=== PATIENT | female | born 1945 | race Caucasian/White ===

== ENCOUNTER 2016-10-24 12:52 | Inpatient (IN) | payer MEDICARE, OTHER ==
[~2016-10-24] VITALS: Ht 149.9 cm; Wt 75.7 kg
[2016-10-24] MEDS ORDERED: DUONEB INH ONE (13:54)
[2016-10-24] MEDS ORDERED: METHYLPRED SOD SUCC 125 MG/2 ML VIAL ONE (14:18)
[2016-10-24] MEDS ORDERED: NEB-ALBUTEROL 2.5 MG/3 ML INH ONE (15:45)
[2016-10-24] MEDS ORDERED: AZITHROMYCIN 500 MG VIAL IV ONE (15:50)
[2016-10-24] MEDS ORDERED: SODIUM CHLORIDE 0.9% 250 ML IV ONE (15:50)
[2016-10-24] MEDS ORDERED: GLUCAGON 1 MG VIAL IM PRN (17:05)
[2016-10-24] MEDS ORDERED: ALPRAZOLAM 0.25 MG TAB PO PRN (17:05)
[2016-10-24] MEDS ORDERED: SALINE FLUSH 10 ML FLUSH PRN (17:05)
[2016-10-24] MEDS ORDERED: ACETAMINOPHEN 325 MG TAB PO PRN (17:05)
[2016-10-24] MEDS ORDERED: DEXTROSE 50% SYRINGE 50 ML IV PRN (17:05)
[2016-10-24 18:58] VITALS: BP_SYST 145; BP_SYST 151; RESP 20; TEMP 97.4; Ht 149.9 cm; Wt 75.7 kg
[2016-10-24] MEDS: DUONEB INH SCH ×2 (19:00→22:32)
[2016-10-24] MEDS: CEFTRIAXONE 1 GM in SODIUM CHLORIDE 0.9% 50 ML IV SCH (20:07)
[2016-10-24] MEDS: Furosemide 40 MG TAB PO SCH (20:43)
[2016-10-24] MEDS: METHYLPRED SOD SUCC 125 MG/2 ML VIAL IV SCH (20:45)
[2016-10-24] MEDS: Atorvastatin 40 MG TAB PO SCH (20:46)
[2016-10-24] MEDS: cloNIDine 0.2 MG TAB PO SCH (20:46)
[2016-10-24] MEDS: DULoxetine 30 MG CAP PO SCH (20:46)
[2016-10-24] MEDS: MONTELUKAST 10 MG TAB PO SCH (20:47)
[2016-10-24] MEDS: BENZONATATE 100 MG CAP PO SCH (20:47)
[2016-10-24] MEDS: POLYETHYLENE GLYCOL 17 GM PACKET PO SCH (20:48)
[2016-10-24] MEDS: CETIRIZINE 10 MG TAB PO SCH (20:48)
[2016-10-24] MEDS: ALPRAZOLAM 0.25 MG TAB PO SCH (21:00)
[2016-10-24] MEDS: SALINE FLUSH 10 ML FLUSH SCH (21:27)
[2016-10-24] MEDS: NEB-BROVANA 15 MCG/2 ML INH SCH (22:32)
[2016-10-24] MEDS: NEB-BUDESONIDE 0.5 MG INH SCH (22:32)
[2016-10-24 22:47] VITALS: BP_SYST 152
[2016-10-24 22:49] VITALS: RESP 20; TEMP 96.7
[2016-10-25] VITALS (7 sets, daily range): BP systolic 145–169; RESP 20–22; TEMP 97.2–97.8
[2016-10-25] MEDS: LEVOTHYROXINE 0.088 MG TAB PO SCH (06:03)
[2016-10-25] MEDS: SODIUM CHLORIDE 0.9% FLUSH BAG 500 ML IV SCH (06:03)
[2016-10-25] MEDS: PANTOPRAZOLE 40 MG TAB PO SCH (06:03)
[2016-10-25] MEDS: FLUTICASONE 0.05% NA BTL NARE EACH SCH (08:07)
[2016-10-25] MEDS: SALINE FLUSH 10 ML FLUSH SCH ×2 (08:08→20:33)
[2016-10-25] MEDS: METHYLPRED SOD SUCC 125 MG/2 ML VIAL IV SCH ×2 (08:08→20:33)
[2016-10-25] MEDS: POLYETHYLENE GLYCOL 17 GM PACKET PO SCH ×2 (08:08→20:42)
[2016-10-25] MEDS: MAG OXIDE 400 MG TAB PO SCH (08:09)
[2016-10-25] MEDS: METOPROLOL XL 50 MG TAB PO SCH (08:09)
[2016-10-25] MEDS: cloNIDine 0.2 MG TAB PO SCH ×2 (08:09→20:33)
[2016-10-25] MEDS: BENZONATATE 100 MG CAP PO SCH ×3 (08:09→20:32)
[2016-10-25] MEDS: PARICALCITOL 1 MCG CAP PO SCH (08:09)
[2016-10-25] MEDS: ALPRAZOLAM 0.25 MG TAB PO SCH ×2 (08:09→20:32)
[2016-10-25] MEDS: CEFTRIAXONE 1 GM in SODIUM CHLORIDE 0.9% 50 ML IV SCH (08:10)
[2016-10-25] MEDS: Furosemide 40 MG TAB PO SCH ×2 (08:18→16:32)
[2016-10-25] MEDS: ENOXAPARIN 30 MG/0.3 ML SYR SUBQ SCH (08:21)
[2016-10-25] MEDS: NEB-BROVANA 15 MCG/2 ML INH SCH ×2 (09:06→19:53)
[2016-10-25] MEDS: DUONEB INH SCH ×5 (09:06→22:47)
[2016-10-25] MEDS: NEB-BUDESONIDE 0.5 MG INH SCH ×2 (09:06→19:53)
[2016-10-25] MEDS: AZITHROMYCIN 500 MG in SODIUM CHLORIDE 0.9% 250 ML IV SCH (09:10)
[2016-10-25] MEDS ORDERED: GLUCAGON 1 MG VIAL IM PRN (17:50)
[2016-10-25] MEDS ORDERED: DEXTROSE 50% SYRINGE 50 ML IV PRN (17:50)
[2016-10-25] MEDS: DULoxetine 30 MG CAP PO SCH (20:32)
[2016-10-25] MEDS: Atorvastatin 40 MG TAB PO SCH (20:32)
[2016-10-25] MEDS: CETIRIZINE 10 MG TAB PO SCH (20:32)
[2016-10-25] MEDS: MONTELUKAST 10 MG TAB PO SCH (20:32)
[2016-10-26] MEDS: DUONEB INH SCH ×6 (02:35→22:19)
[2016-10-26 03:25] VITALS: BP_SYST 150; RESP 22; TEMP 97.3
[2016-10-26] MEDS: SODIUM CHLORIDE 0.9% FLUSH BAG 500 ML IV SCH (06:23)
[2016-10-26] MEDS: PANTOPRAZOLE 40 MG TAB PO SCH (06:23)
[2016-10-26] MEDS: NEB-BROVANA 15 MCG/2 ML INH SCH ×2 (06:39→18:48)
[2016-10-26] MEDS: NEB-BUDESONIDE 0.5 MG INH SCH ×2 (06:39→18:49)
[2016-10-26 07:19] VITALS: BP_SYST 147; RESP 20; TEMP 97.6
[2016-10-26] MEDS: SALINE FLUSH 10 ML FLUSH SCH ×2 (07:57→20:23)
[2016-10-26] MEDS: FLUTICASONE 0.05% NA BTL NARE EACH SCH (07:58)
[2016-10-26] MEDS: POLYETHYLENE GLYCOL 17 GM PACKET PO SCH ×2 (07:58→20:24)
[2016-10-26] MEDS: ALPRAZOLAM 0.25 MG TAB PO SCH ×2 (07:58→20:22)
[2016-10-26] MEDS: ENOXAPARIN 30 MG/0.3 ML SYR SUBQ SCH (07:59)
[2016-10-26] MEDS: BENZONATATE 100 MG CAP PO SCH ×3 (08:00→20:22)
[2016-10-26] MEDS: MAG OXIDE 400 MG TAB PO SCH (08:01)
[2016-10-26] MEDS: cloNIDine 0.2 MG TAB PO SCH ×2 (08:01→20:22)
[2016-10-26] MEDS: Furosemide 40 MG TAB PO SCH ×2 (08:01→16:20)
[2016-10-26] MEDS: ASPIRIN 81 MG CHEW TAB PO SCH (08:01)
[2016-10-26] MEDS: METHYLPRED SOD SUCC 125 MG/2 ML VIAL IV SCH ×2 (08:01→20:23)
[2016-10-26] MEDS: METOPROLOL XL 50 MG TAB PO SCH (08:01)
[2016-10-26] MEDS: CEFTRIAXONE 1 GM in SODIUM CHLORIDE 0.9% 50 ML IV SCH (08:02)
[2016-10-26] MEDS: AZITHROMYCIN 500 MG in SODIUM CHLORIDE 0.9% 250 ML IV SCH (08:59)
[2016-10-26 10:57] VITALS: BP_SYST 182; RESP 20; TEMP 97.2
[2016-10-26 15:28] VITALS: BP_SYST 159; RESP 20; TEMP 97.3
[2016-10-26 19:02] VITALS: BP_SYST 169; RESP 22; TEMP 97.2
[2016-10-26] MEDS: Atorvastatin 40 MG TAB PO SCH (20:22)
[2016-10-26] MEDS: DULoxetine 30 MG CAP PO SCH (20:22)
[2016-10-26] MEDS: MONTELUKAST 10 MG TAB PO SCH (20:22)
[2016-10-26] MEDS: CETIRIZINE 10 MG TAB PO SCH (20:22)
[2016-10-26 23:03] VITALS: BP_SYST 159; RESP 22; TEMP 97
[2016-10-27] MEDS: DUONEB INH SCH ×6 (02:38→22:54)
[2016-10-27 03:35] VITALS: BP_SYST 158; RESP 20; TEMP 97.4
[2016-10-27] MEDS: SODIUM CHLORIDE 0.9% FLUSH BAG 500 ML IV SCH (05:03)
[2016-10-27] MEDS: NEB-BROVANA 15 MCG/2 ML INH SCH ×2 (05:15→19:03)
[2016-10-27] MEDS: NEB-BUDESONIDE 0.5 MG INH SCH ×2 (05:16→19:03)
[2016-10-27] MEDS: PANTOPRAZOLE 40 MG TAB PO SCH (06:13)
[2016-10-27] MEDS: LEVOTHYROXINE 0.088 MG TAB PO SCH (06:13)
[2016-10-27 07:58] VITALS: BP_SYST 158; RESP 18; TEMP 97.4
[2016-10-27] MEDS: POLYETHYLENE GLYCOL 17 GM PACKET PO SCH ×2 (08:17→21:20)
[2016-10-27] MEDS: CEFTRIAXONE 1 GM in SODIUM CHLORIDE 0.9% 50 ML IV SCH (08:18)
[2016-10-27] MEDS: ALPRAZOLAM 0.25 MG TAB PO SCH ×2 (08:19→21:27)
[2016-10-27] MEDS: ENOXAPARIN 30 MG/0.3 ML SYR SUBQ SCH (08:19)
[2016-10-27] MEDS: BENZONATATE 100 MG CAP PO SCH ×3 (08:19→21:21)
[2016-10-27] MEDS: FLUTICASONE 0.05% NA BTL NARE EACH SCH (08:19)
[2016-10-27] MEDS: Furosemide 40 MG TAB PO SCH (08:20)
[2016-10-27] MEDS: cloNIDine 0.2 MG TAB PO SCH ×2 (08:20→21:21)
[2016-10-27] MEDS: METHYLPRED SOD SUCC 125 MG/2 ML VIAL IV SCH (08:20)
[2016-10-27] MEDS: MAG OXIDE 400 MG TAB PO SCH (08:20)
[2016-10-27] MEDS: METOPROLOL XL 50 MG TAB PO SCH (08:21)
[2016-10-27] MEDS: SALINE FLUSH 10 ML FLUSH SCH ×2 (08:21→21:22)
[2016-10-27] MEDS ORDERED: AZITHROMYCIN 250 MG TAB PO SCH (09:00)
[2016-10-27 11:20] VITALS: BP_SYST 158; RESP 20; TEMP 97.3
[2016-10-27 15:52] VITALS: BP_SYST 182; RESP 22; TEMP 97.6
[2016-10-27] MEDS: KCL CR 8 MEQ TAB PO SCH (17:28)
[2016-10-27] MEDS: Furosemide 100 MG/10 ML VIAL IV SCH (17:28)
[2016-10-27 20:32] VITALS: BP_SYST 175; RESP 20; TEMP 97.8
[2016-10-27] MEDS: CETIRIZINE 10 MG TAB PO SCH (21:20)
[2016-10-27] MEDS: DULoxetine 30 MG CAP PO SCH (21:21)
[2016-10-27] MEDS: Atorvastatin 40 MG TAB PO SCH (21:21)
[2016-10-27] MEDS: MONTELUKAST 10 MG TAB PO SCH (21:21)
[2016-10-27 23:20] VITALS: BP_SYST 180; RESP 20; TEMP 97.4
[2016-10-28] VITALS (7 sets, daily range): BP systolic 159–199; RESP 18–24; TEMP 96.3–97.8
[2016-10-28] MEDS: METHYLPRED SOD SUCC 125 MG/2 ML VIAL IV SCH ×4 (00:14→23:29)
[2016-10-28] MEDS: DUONEB INH SCH ×6 (02:55→22:15)
[2016-10-28] MEDS: PANTOPRAZOLE 40 MG TAB PO SCH (06:22)
[2016-10-28] MEDS: SODIUM CHLORIDE 0.9% FLUSH BAG 500 ML IV SCH (06:22)
[2016-10-28] MEDS: NEB-BUDESONIDE 0.5 MG INH SCH ×2 (06:25→19:22)
[2016-10-28] MEDS: NEB-BROVANA 15 MCG/2 ML INH SCH ×2 (06:25→19:22)
[2016-10-28] MEDS: BENZONATATE 100 MG CAP PO SCH ×3 (08:40→20:47)
[2016-10-28] MEDS: ALPRAZOLAM 0.25 MG TAB PO SCH ×2 (08:40→20:48)
[2016-10-28] MEDS: MAG OXIDE 400 MG TAB PO SCH (08:40)
[2016-10-28] MEDS: cloNIDine 0.2 MG TAB PO SCH (08:40)
[2016-10-28] MEDS: ASPIRIN 81 MG CHEW TAB PO SCH (08:40)
[2016-10-28] MEDS: METOPROLOL XL 50 MG TAB PO SCH (08:40)
[2016-10-28] MEDS: PARICALCITOL 1 MCG CAP PO SCH (08:40)
[2016-10-28] MEDS: KCL CR 8 MEQ TAB PO SCH (08:40)
[2016-10-28] MEDS: POLYETHYLENE GLYCOL 17 GM PACKET PO SCH ×2 (08:42→20:48)
[2016-10-28] MEDS: FLUTICASONE 0.05% NA BTL NARE EACH SCH (08:42)
[2016-10-28] MEDS: CEFTRIAXONE 1 GM in SODIUM CHLORIDE 0.9% 50 ML IV SCH (08:43)
[2016-10-28] MEDS: ENOXAPARIN 30 MG/0.3 ML SYR SUBQ SCH (08:43)
[2016-10-28] MEDS: Furosemide 100 MG/10 ML VIAL IV SCH ×2 (08:43→16:26)
[2016-10-28] MEDS: SALINE FLUSH 10 ML FLUSH SCH ×2 (08:44→20:46)
[2016-10-28] MEDS: NEB-NACL 3% 4 ML NEBU INH SCH ×3 (14:11→22:15)
[2016-10-28] MEDS: ROFLUMILAST 500 MCG TAB PO SCH (17:08)
[2016-10-28] MEDS: Atorvastatin 40 MG TAB PO SCH (20:47)
[2016-10-28] MEDS: CETIRIZINE 10 MG TAB PO SCH (20:47)
[2016-10-28] MEDS: cloNIDine 0.3 MG TAB PO SCH (20:47)
[2016-10-28] MEDS: DULoxetine 30 MG CAP PO SCH (20:48)
[2016-10-28] MEDS: MONTELUKAST 10 MG TAB PO SCH (20:48)
[2016-10-29] VITALS (7 sets, daily range): BP systolic 133–178; RESP 20–22; TEMP 97.2–97.6
[2016-10-29] MEDS: DUONEB INH SCH ×6 (02:47→23:02)
[2016-10-29] MEDS: NEB-NACL 3% 4 ML NEBU INH SCH ×6 (02:47→23:00)
[2016-10-29] MEDS: PANTOPRAZOLE 40 MG TAB PO SCH (06:26)
[2016-10-29] MEDS: LEVOTHYROXINE 0.088 MG TAB PO SCH (06:26)
[2016-10-29] MEDS: SODIUM CHLORIDE 0.9% FLUSH BAG 500 ML IV SCH (06:27)
[2016-10-29] MEDS: NEB-BROVANA 15 MCG/2 ML INH SCH ×2 (07:44→18:49)
[2016-10-29] MEDS: NEB-BUDESONIDE 0.5 MG INH SCH ×2 (07:44→18:49)
[2016-10-29] MEDS: ALPRAZOLAM 0.25 MG TAB PO SCH ×2 (08:10→20:28)
[2016-10-29] MEDS: KCL CR 8 MEQ TAB PO SCH (08:10)
[2016-10-29] MEDS: MAG OXIDE 400 MG TAB PO SCH (08:10)
[2016-10-29] MEDS: METOPROLOL XL 50 MG TAB PO SCH (08:10)
[2016-10-29] MEDS: ROFLUMILAST 500 MCG TAB PO SCH (08:10)
[2016-10-29] MEDS: BENZONATATE 100 MG CAP PO SCH ×3 (08:11→20:22)
[2016-10-29] MEDS: POLYETHYLENE GLYCOL 17 GM PACKET PO SCH ×2 (08:11→20:22)
[2016-10-29] MEDS: ENOXAPARIN 30 MG/0.3 ML SYR SUBQ SCH (08:12)
[2016-10-29] MEDS: cloNIDine 0.3 MG TAB PO SCH ×2 (08:12→20:22)
[2016-10-29] MEDS: FLUTICASONE 0.05% NA BTL NARE EACH SCH (08:12)
[2016-10-29] MEDS: Furosemide 100 MG/10 ML VIAL IV SCH ×2 (08:13→17:11)
[2016-10-29] MEDS: SALINE FLUSH 10 ML FLUSH SCH ×2 (08:13→20:23)
[2016-10-29] MEDS: METHYLPRED SOD SUCC 125 MG/2 ML VIAL IV SCH ×2 (08:13→17:10)
[2016-10-29] MEDS: CEFTRIAXONE 1 GM in SODIUM CHLORIDE 0.9% 50 ML IV SCH (08:14)
[2016-10-29] MEDS: Atorvastatin 40 MG TAB PO SCH (20:22)
[2016-10-29] MEDS: CETIRIZINE 10 MG TAB PO SCH (20:22)
[2016-10-29] MEDS: MONTELUKAST 10 MG TAB PO SCH (20:23)
[2016-10-29] MEDS: DULoxetine 30 MG CAP PO SCH (20:23)
[2016-10-30] MEDS: METHYLPRED SOD SUCC 125 MG/2 ML VIAL IV SCH ×3 (00:42→16:14)
[2016-10-30] MEDS: DUONEB INH SCH ×6 (02:33→23:33)
[2016-10-30] MEDS: NEB-NACL 3% 4 ML NEBU INH SCH ×6 (02:33→23:33)
[2016-10-30 04:12] VITALS: BP_SYST 167; RESP 20; TEMP 97.3
[2016-10-30] MEDS: PANTOPRAZOLE 40 MG TAB PO SCH (06:15)
[2016-10-30] MEDS: SODIUM CHLORIDE 0.9% FLUSH BAG 500 ML IV SCH (06:15)
[2016-10-30] MEDS: NEB-BUDESONIDE 0.5 MG INH SCH ×2 (06:33→17:23)
[2016-10-30] MEDS: NEB-BROVANA 15 MCG/2 ML INH SCH ×2 (06:33→17:22)
[2016-10-30 07:23] VITALS: BP_SYST 157; RESP 20; TEMP 97.5
[2016-10-30] MEDS: CEFTRIAXONE 1 GM in SODIUM CHLORIDE 0.9% 50 ML IV SCH (08:14)
[2016-10-30] MEDS: POLYETHYLENE GLYCOL 17 GM PACKET PO SCH ×2 (08:15→20:12)
[2016-10-30] MEDS: SALINE FLUSH 10 ML FLUSH SCH ×2 (08:15→20:11)
[2016-10-30] MEDS: FLUTICASONE 0.05% NA BTL NARE EACH SCH (08:16)
[2016-10-30] MEDS: Furosemide 100 MG/10 ML VIAL IV SCH ×2 (08:16→16:14)
[2016-10-30] MEDS: ALPRAZOLAM 0.25 MG TAB PO SCH ×2 (08:17→20:11)
[2016-10-30] MEDS: METOPROLOL XL 50 MG TAB PO SCH (08:17)
[2016-10-30] MEDS: PARICALCITOL 1 MCG CAP PO SCH (08:17)
[2016-10-30] MEDS: MAG OXIDE 400 MG TAB PO SCH (08:17)
[2016-10-30] MEDS: cloNIDine 0.3 MG TAB PO SCH ×2 (08:17→20:13)
[2016-10-30] MEDS: ENOXAPARIN 30 MG/0.3 ML SYR SUBQ SCH (08:17)
[2016-10-30] MEDS: KCL CR 8 MEQ TAB PO SCH (08:18)
[2016-10-30] MEDS: BENZONATATE 100 MG CAP PO SCH ×3 (08:18→20:11)
[2016-10-30] MEDS: ROFLUMILAST 500 MCG TAB PO SCH (08:18)
[2016-10-30] MEDS: ASPIRIN 81 MG CHEW TAB PO SCH (08:18)
[2016-10-30 11:21] VITALS: BP_SYST 134; RESP 20; TEMP 97.6
[2016-10-30 15:05] VITALS: BP_SYST 143; RESP 20; TEMP 97.3
[2016-10-30 19:11] VITALS: BP_SYST 152; RESP 20; TEMP 97.3
[2016-10-30] MEDS: CETIRIZINE 10 MG TAB PO SCH (20:11)
[2016-10-30] MEDS: MONTELUKAST 10 MG TAB PO SCH (20:11)
[2016-10-30] MEDS: Atorvastatin 40 MG TAB PO SCH (20:11)
[2016-10-30] MEDS: DULoxetine 30 MG CAP PO SCH (20:11)
[2016-10-30 23:22] VITALS: BP_SYST 141; RESP 18; TEMP 97.5
[2016-10-31] VITALS (24 sets, daily range): BP systolic 128–181; RESP 18–24; TEMP 97–98.3
[2016-10-31] MEDS: METHYLPRED SOD SUCC 125 MG/2 ML VIAL IV SCH ×4 (00:02→23:16)
[2016-10-31] MEDS: NEB-NACL 3% 4 ML NEBU INH SCH ×6 (02:38→23:00)
[2016-10-31] MEDS: DUONEB INH SCH ×6 (02:38→23:00)
[2016-10-31] MEDS: PANTOPRAZOLE 40 MG TAB PO SCH (06:11)
[2016-10-31] MEDS: LEVOTHYROXINE 0.088 MG TAB PO SCH (06:11)
[2016-10-31] MEDS: SODIUM CHLORIDE 0.9% FLUSH BAG 500 ML IV SCH (06:12)
[2016-10-31] MEDS: SALINE FLUSH 10 ML FLUSH SCH ×2 (07:41→20:08)
[2016-10-31] MEDS: NEB-BUDESONIDE 0.5 MG INH SCH ×2 (07:42→17:26)
[2016-10-31] MEDS: NEB-BROVANA 15 MCG/2 ML INH SCH ×2 (07:42→17:26)
[2016-10-31] MEDS ORDERED: MISSING DOSE XX ONE ×2 (07:45→19:30)
[2016-10-31] MEDS: METOPROLOL XL 50 MG TAB PO SCH (08:08)
[2016-10-31] MEDS: CEFTRIAXONE 1 GM in SODIUM CHLORIDE 0.9% 50 ML IV SCH (08:08)
[2016-10-31] MEDS: FLUTICASONE 0.05% NA BTL NARE EACH SCH (09:00)
[2016-10-31] MEDS: POLYETHYLENE GLYCOL 17 GM PACKET PO SCH ×2 (09:00→20:09)
[2016-10-31] MEDS: BENZONATATE 100 MG CAP PO SCH ×3 (09:00→20:09)
[2016-10-31] MEDS: ALPRAZOLAM 0.25 MG TAB PO SCH ×2 (09:00→20:08)
[2016-10-31] MEDS ORDERED: LIDOCAINE 2% SYR 5 ML IV ONE (10:56)
[2016-10-31] MEDS ORDERED: PROPOFOL 50ML VIAL IV ONE (10:56)
[2016-10-31] MEDS ORDERED: KETAMINE INJ 50 MG/ML VIAL ONE (10:56)
[2016-10-31] MEDS ORDERED: GLYCOPYRROLATE 0.2 MG/ML VIAL ONE (10:56)
[2016-10-31] MEDS: NEB-XOPENEX 0.63 MG/3 ML INH SCH ×3 (15:00→23:00)
[2016-10-31] MEDS: ROFLUMILAST 500 MCG TAB PO SCH (15:01)
[2016-10-31] MEDS: cloNIDine 0.3 MG TAB PO SCH ×2 (15:01→20:08)
[2016-10-31] MEDS: MAG OXIDE 400 MG TAB PO SCH ×2 (15:02→15:08)
[2016-10-31] MEDS: DULoxetine 30 MG CAP PO SCH (20:08)
[2016-10-31] MEDS: CETIRIZINE 10 MG TAB PO SCH (20:08)
[2016-10-31] MEDS: MONTELUKAST 10 MG TAB PO SCH (20:08)
[2016-10-31] MEDS: Atorvastatin 40 MG TAB PO SCH (20:09)
[2016-11-01] VITALS (10 sets, daily range): BP systolic 103–156; RESP 18–20; TEMP 97.3–97.7
[2016-11-01] MEDS: NEB-XOPENEX 0.63 MG/3 ML INH SCH ×6 (03:00→23:47)
[2016-11-01] MEDS: NEB-NACL 3% 4 ML NEBU INH SCH ×6 (03:06→23:47)
[2016-11-01] MEDS: DUONEB INH SCH ×9 (03:06→23:00)
[2016-11-01] MEDS: SODIUM CHLORIDE 0.9% FLUSH BAG 500 ML IV SCH (06:00)
[2016-11-01] MEDS: PANTOPRAZOLE 40 MG TAB PO SCH (06:30)
[2016-11-01] MEDS: NEB-BUDESONIDE 0.5 MG INH SCH ×2 (07:17→19:35)
[2016-11-01] MEDS: NEB-BROVANA 15 MCG/2 ML INH SCH ×2 (07:17→19:35)
[2016-11-01] MEDS: POLYETHYLENE GLYCOL 17 GM PACKET PO SCH ×2 (09:00→21:22)
[2016-11-01] MEDS: SALINE FLUSH 10 ML FLUSH SCH ×2 (09:54→21:24)
[2016-11-01] MEDS: METHYLPRED SOD SUCC 125 MG/2 ML VIAL IV SCH ×2 (09:54→16:33)
[2016-11-01] MEDS: PARICALCITOL 1 MCG CAP PO SCH (09:55)
[2016-11-01] MEDS: BENZONATATE 100 MG CAP PO SCH ×3 (09:55→21:23)
[2016-11-01] MEDS: ALPRAZOLAM 0.25 MG TAB PO SCH ×2 (09:55→21:22)
[2016-11-01] MEDS: FLUTICASONE 0.05% NA BTL NARE EACH SCH (09:55)
[2016-11-01] MEDS: cloNIDine 0.3 MG TAB PO SCH ×2 (09:56→21:23)
[2016-11-01] MEDS: ASPIRIN 81 MG CHEW TAB PO SCH (09:56)
[2016-11-01] MEDS: ROFLUMILAST 500 MCG TAB PO SCH (09:56)
[2016-11-01] MEDS: METOPROLOL XL 50 MG TAB PO SCH (09:56)
[2016-11-01] MEDS ORDERED: MISSING DOSE XX ONE (10:10)
[2016-11-01] MEDS: Furosemide 20 MG TAB PO SCH ×2 (10:37→16:33)
[2016-11-01] MEDS: GUAIFENESIN ER 600 MG TABCR PO SCH (21:23)
[2016-11-01] MEDS: Atorvastatin 40 MG TAB PO SCH (21:23)
[2016-11-01] MEDS: DULoxetine 30 MG CAP PO SCH (21:23)
[2016-11-01] MEDS: MONTELUKAST 10 MG TAB PO SCH (21:23)
[2016-11-02] VITALS (9 sets, daily range): BP systolic 134–150; RESP 18–22; TEMP 97.3–97.8
[2016-11-02] MEDS: DUONEB INH SCH ×6 (03:00→23:00)
[2016-11-02] MEDS: NEB-XOPENEX 0.63 MG/3 ML INH SCH ×5 (03:04→20:31)
[2016-11-02] MEDS: NEB-NACL 3% 4 ML NEBU INH SCH ×5 (03:04→20:31)
[2016-11-02] MEDS: NEB-BROVANA 15 MCG/2 ML INH SCH ×2 (05:20→20:30)
[2016-11-02] MEDS: NEB-BUDESONIDE 0.5 MG INH SCH ×2 (05:20→20:30)
[2016-11-02] MEDS: SODIUM CHLORIDE 0.9% FLUSH BAG 500 ML IV SCH ×2 (06:00→19:37)
[2016-11-02] MEDS: LEVOTHYROXINE 0.088 MG TAB PO SCH (06:19)
[2016-11-02] MEDS: PANTOPRAZOLE 40 MG TAB PO SCH (06:19)
[2016-11-02] MEDS: METHYLPRED SOD SUCC 125 MG/2 ML VIAL IV SCH ×3 (08:21→11:20)
[2016-11-02] MEDS: FLUTICASONE 0.05% NA BTL NARE EACH SCH (08:22)
[2016-11-02] MEDS: cloNIDine 0.3 MG TAB PO SCH ×2 (08:22→20:20)
[2016-11-02] MEDS: SALINE FLUSH 10 ML FLUSH SCH ×2 (08:22→19:35)
[2016-11-02] MEDS: MAG OXIDE 400 MG TAB PO SCH (08:22)
[2016-11-02] MEDS: GUAIFENESIN ER 600 MG TABCR PO SCH ×2 (08:22→20:21)
[2016-11-02] MEDS: BENZONATATE 100 MG CAP PO SCH ×3 (08:22→20:20)
[2016-11-02] MEDS: ROFLUMILAST 500 MCG TAB PO SCH (08:23)
[2016-11-02] MEDS: METOPROLOL XL 50 MG TAB PO SCH (08:23)
[2016-11-02] MEDS: ALPRAZOLAM 0.25 MG TAB PO SCH ×2 (08:23→20:20)
[2016-11-02] MEDS: Furosemide 20 MG TAB PO SCH (08:23)
[2016-11-02] MEDS: POLYETHYLENE GLYCOL 17 GM PACKET PO SCH ×2 (08:23→20:21)
[2016-11-02] MEDS: PREDNISONE 20 MG TAB PO SCH (12:11)
[2016-11-02] MEDS: Atorvastatin 40 MG TAB PO SCH (20:20)
[2016-11-02] MEDS: DULoxetine 30 MG CAP PO SCH (20:20)
[2016-11-02] MEDS: MONTELUKAST 10 MG TAB PO SCH (20:20)
[2016-11-03] VITALS (11 sets, daily range): BP systolic 132–173; RESP 18–20; TEMP 97.7–98.3
[2016-11-03] MEDS: NEB-NACL 3% 4 ML NEBU INH SCH ×7 (00:02→23:26)
[2016-11-03] MEDS: NEB-XOPENEX 0.63 MG/3 ML INH SCH ×7 (00:04→23:26)
[2016-11-03] MEDS: DUONEB INH SCH ×6 (03:00→23:00)
[2016-11-03] MEDS: PANTOPRAZOLE 40 MG TAB PO SCH (06:34)
[2016-11-03] MEDS: SALINE FLUSH 10 ML FLUSH SCH ×2 (07:31→20:00)
[2016-11-03] MEDS: NEB-BUDESONIDE 0.5 MG INH SCH ×2 (07:40→19:37)
[2016-11-03] MEDS: NEB-BROVANA 15 MCG/2 ML INH SCH ×2 (07:40→19:36)
[2016-11-03] MEDS ORDERED: MISSING DOSE XX ONE (09:30)
[2016-11-03] MEDS: GUAIFENESIN ER 600 MG TABCR PO SCH ×2 (09:32→20:23)
[2016-11-03] MEDS: MAG OXIDE 400 MG TAB PO SCH (09:32)
[2016-11-03] MEDS: cloNIDine 0.3 MG TAB PO SCH ×2 (09:32→20:23)
[2016-11-03] MEDS: BENZONATATE 100 MG CAP PO SCH ×3 (09:32→20:23)
[2016-11-03] MEDS: METOPROLOL XL 50 MG TAB PO SCH (09:32)
[2016-11-03] MEDS: ALPRAZOLAM 0.25 MG TAB PO SCH ×2 (09:32→20:23)
[2016-11-03] MEDS: ROFLUMILAST 500 MCG TAB PO SCH (09:32)
[2016-11-03] MEDS: ASPIRIN 81 MG CHEW TAB PO SCH (09:33)
[2016-11-03] MEDS: POLYETHYLENE GLYCOL 17 GM PACKET PO SCH ×2 (09:33→20:25)
[2016-11-03] MEDS: FLUTICASONE 0.05% NA BTL NARE EACH SCH (09:33)
[2016-11-03] MEDS: PREDNISONE 20 MG TAB PO SCH (10:00)
[2016-11-03] MEDS: NYSTATIN 500,000 UNITS/5 ML SUSP SWISH.SWAL SCH ×4 (10:15→20:25)
[2016-11-03] MEDS ORDERED: FLUCONAZOLE 150 MG TAB PO ONE (14:20)
[2016-11-03] MEDS: SODIUM CHLORIDE 0.9% FLUSH BAG 500 ML IV SCH (19:33)
[2016-11-03] MEDS: DULoxetine 30 MG CAP PO SCH (20:23)
[2016-11-03] MEDS: Atorvastatin 40 MG TAB PO SCH (20:23)
[2016-11-03] MEDS: MONTELUKAST 10 MG TAB PO SCH (20:23)
[2016-11-04] VITALS (7 sets, daily range): BP systolic 138–167; RESP 18; TEMP 97.2–97.9
[2016-11-04] MEDS: NEB-XOPENEX 0.63 MG/3 ML INH SCH ×6 (03:00→23:21)
[2016-11-04] MEDS: NEB-NACL 3% 4 ML NEBU INH SCH ×6 (03:00→23:21)
[2016-11-04] MEDS: NEB-BROVANA 15 MCG/2 ML INH SCH ×2 (05:12→19:15)
[2016-11-04] MEDS: NEB-BUDESONIDE 0.5 MG INH SCH ×2 (05:14→19:15)
[2016-11-04] MEDS: PANTOPRAZOLE 40 MG TAB PO SCH (06:07)
[2016-11-04] MEDS: LEVOTHYROXINE 0.088 MG TAB PO SCH (06:07)
[2016-11-04] MEDS: SALINE FLUSH 10 ML FLUSH SCH ×2 (08:00→20:00)
[2016-11-04] MEDS: NYSTATIN 500,000 UNITS/5 ML SUSP SWISH.SWAL SCH ×4 (08:16→22:18)
[2016-11-04] MEDS: FLUTICASONE 0.05% NA BTL NARE EACH SCH (08:16)
[2016-11-04] MEDS: POLYETHYLENE GLYCOL 17 GM PACKET PO SCH ×2 (08:16→22:19)
[2016-11-04] MEDS: ROFLUMILAST 500 MCG TAB PO SCH (08:16)
[2016-11-04] MEDS: FLUCONAZOLE 150 MG TAB PO SCH (08:16)
[2016-11-04] MEDS: BENZONATATE 100 MG CAP PO SCH ×3 (08:17→22:19)
[2016-11-04] MEDS: ALPRAZOLAM 0.25 MG TAB PO SCH ×2 (08:17→22:19)
[2016-11-04] MEDS: cloNIDine 0.3 MG TAB PO SCH ×2 (08:17→22:20)
[2016-11-04] MEDS: PARICALCITOL 1 MCG CAP PO SCH (08:17)
[2016-11-04] MEDS: PREDNISONE 20 MG TAB PO SCH (08:17)
[2016-11-04] MEDS: METOPROLOL XL 50 MG TAB PO SCH (08:17)
[2016-11-04] MEDS: MAG OXIDE 400 MG TAB PO SCH (08:18)
[2016-11-04] MEDS: GUAIFENESIN ER 600 MG TABCR PO SCH ×2 (08:18→22:19)
[2016-11-04] MEDS: MONTELUKAST 10 MG TAB PO SCH (22:19)
[2016-11-04] MEDS: Atorvastatin 40 MG TAB PO SCH (22:19)
[2016-11-04] MEDS: DULoxetine 30 MG CAP PO SCH (22:19)
[2016-11-05] MEDS: SODIUM CHLORIDE 0.9% FLUSH BAG 500 ML IV SCH (05:34)
[2016-11-05] MEDS ORDERED: NEB-NACL 3% 4 ML NEBU INH ONE (06:23)
[2016-11-05] MEDS: NEB-XOPENEX 0.63 MG/3 ML INH SCH ×2 (06:42→11:00)
[2016-11-05] MEDS: NEB-BROVANA 15 MCG/2 ML INH SCH (06:43)
[2016-11-05] MEDS: NEB-NACL 3% 4 ML NEBU INH SCH ×2 (06:43→11:00)
[2016-11-05] MEDS: NEB-BUDESONIDE 0.5 MG INH SCH (06:43)
[2016-11-05 07:40] VITALS: BP_SYST 151; TEMP 97.5
[2016-11-05 07:41] VITALS: RESP 18
[2016-11-05] MEDS: SALINE FLUSH 10 ML FLUSH SCH ×2 (08:00→09:16)
[2016-11-05] MEDS: ALPRAZOLAM 0.25 MG TAB PO SCH (09:14)
[2016-11-05] MEDS: METOPROLOL XL 50 MG TAB PO SCH (09:14)
[2016-11-05] MEDS: FLUCONAZOLE 150 MG TAB PO SCH (09:14)
[2016-11-05] MEDS: NYSTATIN 500,000 UNITS/5 ML SUSP SWISH.SWAL SCH (09:14)
[2016-11-05] MEDS: PREDNISONE 20 MG TAB PO SCH (09:14)
[2016-11-05] MEDS: cloNIDine 0.3 MG TAB PO SCH (09:14)
[2016-11-05] MEDS: PANTOPRAZOLE 40 MG TAB PO SCH (09:15)
[2016-11-05] MEDS: MAG OXIDE 400 MG TAB PO SCH (09:15)
[2016-11-05] MEDS: BENZONATATE 100 MG CAP PO SCH (09:15)
[2016-11-05] MEDS: GUAIFENESIN ER 600 MG TABCR PO SCH (09:15)
[2016-11-05] MEDS: ROFLUMILAST 500 MCG TAB PO SCH (09:15)
[2016-11-05] MEDS: POLYETHYLENE GLYCOL 17 GM PACKET PO SCH (09:15)
[2016-11-05] MEDS: ASPIRIN 81 MG CHEW TAB PO SCH (09:15)
[2016-11-05] MEDS: FLUTICASONE 0.05% NA BTL NARE EACH SCH (09:16)
[2016-11-05 10:44] VITALS: BP_SYST 129
[2016-11-05 10:45] VITALS: RESP 20; TEMP 97.4
[2016-11-05 10:46] VITALS: BP_SYST 129; RESP 20; TEMP 97.4
== END 2016-11-05 11:20 | disposition home or self-care (01) | DRG 189 ==
LOC: ENRESERVDT → ENRESERVTM → ER 12:52 → EMR 17:15 → ENPENDDIS 17:15 → 3NT 18:49
PROVIDERS: ADMIT Internal Medicine; ATTEND Internal Medicine
PROC: 0B968ZX Drainage of Right Lower Lobe Bronchus, Via Natural or Artificial Opening Endoscopic, Diagnostic (ICD-10-PCS; principal; 2016-10-31 14:00)
CPT/HCPCS: 36415; 71010; 71250; 74230; 80048; 80053; 80061; 81001; 82553; 82947; 83735; 83880; 84439; 84443; 84484; 85025; 85610; 85730; 87071; 87102; 87116; 87205; 87206; 87496; 87529; 87798; 88108; 89051; 93005; 94640; 94668; 94799; 96365; 96366; 96375; 99223; 99232; 99233